=== PATIENT | male | born 1995 | race Caucasian/White ===

== ENCOUNTER 2018-02-26 12:59 | Emergency (ER) | payer OTHER ==
[~2018-02-26 12:59] MED LIST: ADDEXR15PT PO; ADV100/50 INH; ALB17R INH; AMOX-559 PO; AUG500 PO; CYCL10TA29 PO; DEXT5TAB10 PO; DIPH-741 PO; FEX60 PO; FEXO-1 PO; FLUO-202 PO; IBU800 PO; IBUP600T22 PO; IBUP800T37 PO; KET10 PO; LOR5 PO; LOR5/325 PO; MONT5TAB15 PO; ONDA4TAB97 PO; OSE75 PO; TOBOO OD; TRAM-420 PO
--- NOTE | 2018-02-26 13:02 | ER Report ---
History and Physical Time Seen By MD: 13:02 (FRANCISCA CHAMBERS MD) HPI/ROS CHIEF COMPLAINT: Facial laceration and contusion HISTORY OF PRESENT ILLNESS: Patient was at work today moving some finney when a portable ball that was being hung felt towards him and struck him in. He did not lose consciousness. It struck him in the forehead and also on the side of the nose. He has a cut and laceration to the left side of the nose lateral aspect. Patient denies any blurry vision or double vision. Eyes any nausea or vomiting. (FRANCISCA CHAMBERS MD) Allergies: Coded Allergies: No Known Drug Allergies (Verified , 02/26/18) Home Meds Active Scripts Amoxicillin/Pot Clav 875-125 Mg Tab (AUGMENTIN 875-125 TABLET) 1 Each Tablet, 1 TAB PO Q12H for 7 Days, #14 TAB 0 Refills Prov:FRANCISCA CHAMBRES MD 02/26/18 Oxycodone Hcl/Acetaminophen (PERCOCET 5-325 MG TABLET) 1 Each Tablet, 1 EACH PO Q4-6H for PAIN, #20 TAB 0 Refills Prov:FRANCISCA CHAMBERS MD 02/26/18 Discontinued Reported Medications Amphet Asp/Amphet/D-Amphet (ADDERALL 5 MG TABLET) 5 Mg Tablet, 5 MG PO DAILY 10/28/13 Amphet Asp/Amphet/D-Amphet (ADDERALL XR 15 MG CAPSULE) 15 Mg Cap.er.24h, 30 MG PO DAILY 10/28/13 Albuterol (Proventil Inhaler) 17 Gm Inh, 1-2 PUFF INH PRN, 0 Refills 1-2 PUFFS 07/17/10 Discontinued Scripts Amoxicillin/Pot Clav 875-125 Mg Tab (AUGMENTIN 875-125 TABLET) 1 Each Tablet, 1 TAB PO Q12H, #14 TAB Prov:PAO WILDER MD 05/31/16 Cyclobenzaprine Hcl (CYCLOBENZAPRINE HCL) 10 Mg Tablet, 10 MG PO TID for Muscle Relaxant, #18 TAB Prov:DAREN ROWLEY DO 08/18/15 Ibuprofen (IBUPROFEN) 800 Mg Tablet, 1 TAB PO Q8H for PAIN, #60 TAB Prov:PAT ROWLEYBIE 08/18/15 Past Medical/Surgical History Noncontributory (FRANCISCA CHAMBERS MD) Hx Smoking: Yes (5-6 CIGS/DAY) Smoking Status: Current: Every Day Smoker Exposure to Second Hand Smoke?: No (FRANCISCA CHAMBERS MD) Constitutional Vital Sign - Last 24 Hours 02/26/18 13:05 Temp 98.4 Pulse 95 Resp 16 B/P (MAP) 152/92 Pulse Ox 93 O2 Delivery Room Air (JOSHUA MCGRATH DO) Physical Exam General Appearance: Alert, no distress. Eyes: Pupils equal and round no pallor or injection. Extraocular muscles are intact and symmetrical ENT, Mouth: Ears: Tympanic membranes are normal. Nose: She has a vertical laceration through the alar of the left nostril and the lateral aspect of the nose. Mild amount of bleeding from left nostril no evidence of epidural hematoma Mouth: Mucous membranes are moist. Throat: No erythema or exudates there is no tonsillar hypertrophy and uvula is midline. Musculoskeletal: Neck is supple non tender, no adenopathy. Skin: Warm and dry, no rashes. (FRANCISCA CHAMBERS MD) Medical Decision Making ED Course/Re-evaluation ED Course Procedure: Laceration repair. Verbal consent was obtained from the patient. The 2 cm laceration on the location lateral aspect of the left nares was evaluated The wound was cleansed, draped and explored to its base with a gloved finger. The wound was repaired with 6 single interrupted 6-0 sutures. The wound repair was complex as it was a full thickness laceration and involved the ala of the left nares so careful attention was paid to primary repair so that the two ends of the ala lined up well. The procedure was performed by myself. Plan at this time will be to perform CT of the facial bones and CT of the head. We'll update patient's tetanus status. We'll place on outpatient pain medicine and antibiotics. Decision to Disposition Date: Feb 26, 2018 Decision to Disposition Time: 16:00 (FRANCISCA CHAMBERS MD) ED Course 02/26/2018 2:40:36 pm PT signed out pending CT reports. CT does not show any facial or skull fx. Pt feels comfortable going home. Decision to Disposition Date: Feb 26, 2018 Decision to Disposition Time: 14:41 (JOSHUA MCGRATH DO) Depart Departure Latest Vital Signs Vital Signs Date Time Temp Pulse Resp B/P (MAP) Pulse Ox O2 Delivery O2 Flow Rate FiO2 02/26/18 13:05 98.4 95 16 152/92 93 Room Air (JOSHUA MCGRATH DO) Impression: Primary Impression: Nasal laceration Condition: Improved Disposition: HOME OR SELF-CARE Referrals: GENNY TIENO MD (PCP) New Scripts Amoxicillin/Pot Clav 875-125 Mg Tab (AUGMENTIN 875-125 TABLET) 1 Each Tablet 1 TAB PO Q12H for 7 Days, #14 TAB 0 Refills Prov: FRANCISCA CHAMBERS MD 02/26/18 Oxycodone Hcl/Acetaminophen (PERCOCET 5-325 MG TABLET) 1 Each Tablet 1 EACH PO Q4-6H for PAIN, #20 TAB 0 Refills Prov: FRANCISCA CHAMBERS MD 02/26/18 Patient Instructions: Laceration (ED) Additional Instructions: Return to her primary doctor or the emergency department for suture removal in 5-7 days We are putting you on an antibiotic to help prevent an infection in your nasal cartilage. You should wash your face as usual. Place antibiotic ointment (such as neosporin or generic) on your sutures daily. Motrin/tylenol for any discomfort while at work. Percocet one every 4 hours for severe pain. You can not take this and drive or work. Problem Qualifiers Primary Impression: Nasal laceration Encounter type: initial encounter Qualified Codes: S01.21XA - Laceration without foreign body of nose, initial encounter FRANCISCA CHAMBERS MD Feb 26, 2018 13:02 JOSHUA MCGRATH DO Feb 26, 2018 14:43
[2018-02-26] MEDS ORDERED: TETRACAIN/EPI/LIDO GEL 3ML SYR TP ONE (13:25)
[2018-02-26] MEDS ORDERED: DIPHTH/TETANUS/ACEL. PERTUSSIS IM ONLY ONE (13:45)
[2018-02-26] MEDS ORDERED: AMOX-559 PO (14:09)
[2018-02-26] MEDS ORDERED: OXYC-865 PO (14:09)
[2018-02-26 14:30] VITALS: BP 123/47
--- NOTE | 2018-02-26 14:35 | RADIOLOGY IMAGING REPORT ---
FACILITY: [facility] PATIENT NAME: Gm Altamirano : 1995 MR: [id number] V: [id number] EXAM DATE: ORDERING PHYSICIAN: FRANCISCA CHAMBERS TECHNOLOGIST: [place] [facility] [place]: Gm Altamirano : 1995 Visit/Account:[id number] Date of Sevice: 02/26/2018 EXAMINATION: CT head without IV contrast CT facial bones without IV contrast HISTORY: Trauma. TECHNIQUE: Axial CT images of the head were obtained from the vertex to the skull base without IV c ontrast, with coronal and sagittal 2D reconstructed images. Thin axial CT images of the facial bones were obtained without IV contrast, from the superior orbit through the mandible, with 2D coronal and sagittal reconstructed images. One of the following dose optimization techniques was utilized in the performance of this exam: Autom ated exposure control; adjustment of the mA and/or kV according to the patient's size; or use of an i terative reconstruction technique. Specific details can be referenced in the facility's radiology C T exam operational policy. COMPARISON: CT head 03/02/2014. FINDINGS: The intracranial contents are unremarkable. No CT evidence of intracranial hemorrhage or mass effect . No midline shift or extra-axial fluid collections. Webb-white differentiation is maintained. The calvarium is intact. Dedicated imaging of the facial bones demonstrates no evidence of facial fracture. The bilateral nasa l bones and bony orbits are intact. The zygomatic arches and pterygoid plates are unremarkable. The m axilla and mandible are intact. Normal alignment at the temporomandibular joints. The paranasal sinuses and mastoid air cells are unopacified. The skull base is intact. IMPRESSION: 1. No CT evidence of acute intracranial pathology. No evidence intracranial hemorrhage or skull fract ure. 2. No evidence of facial fracture. Facial bones appear intact. Report Dictated By: Nicolas Hendrickson MD at 02/26/2018 2:20 PM Report E-Signed By: Nicolas Hendrickson MD at 02/26/2018 2:32 PM WSN:[id number]
--- NOTE | 2018-02-26 14:36 | RADIOLOGY IMAGING REPORT ---
FACILITY: [facility] PATIENT NAME: Gm Altamirano : 1995 MR: [id number] V: [id number] EXAM DATE: ORDERING PHYSICIAN: FRANCISCA CHAMBERS TECHNOLOGIST: Location: [facility] Patient: Gm Altamirano : 1995 Visit/Account:[id number] Date of Sevice: 02/26/2018 EXAMINATION: CT head without IV contrast CT facial bones without IV contrast HISTORY: Trauma. TECHNIQUE: Axial CT images of the head were obtained from the vertex to the skull base without IV c ontrast, with coronal and sagittal 2D reconstructed images. Thin axial CT images of the facial bones were obtained without IV contrast, from the superior orbit through the mandible, with 2D coronal and sagittal reconstructed images. One of the following dose optimization techniques was utilized in the performance of this exam: Autom ated exposure control; adjustment of the mA and/or kV according to the patient's size; or use of an i terative reconstruction technique. Specific details can be referenced in the facility's radiology C T exam operational policy. COMPARISON: CT head 03/02/2014. FINDINGS: The intracranial contents are unremarkable. No CT evidence of intracranial hemorrhage or mass effect . No midline shift or extra-axial fluid collections. Webb-white differentiation is maintained. The calvarium is intact. Dedicated imaging of the facial bones demonstrates no evidence of facial fracture. The bilateral nasa l bones and bony orbits are intact. The zygomatic arches and pterygoid plates are unremarkable. The m axilla and mandible are intact. Normal alignment at the temporomandibular joints. The paranasal sinuses and mastoid air cells are unopacified. The skull base is intact. IMPRESSION: 1. No CT evidence of acute intracranial pathology. No evidence intracranial hemorrhage or skull fract ure. 2. No evidence of facial fracture. Facial bones appear intact. Report Dictated By: Nicolas Hendrickson MD at 02/26/2018 2:20 PM Report E-Signed By: Nicolas Hendrickson MD at 02/26/2018 2:32 PM WSN:[id number]
== END 2018-02-26 14:59 | disposition home or self-care (01) ==
LOC: ER 13:09
DX: S01.21XA Laceration without foreign body of nose, initial encounter (principal); S00.33XA Contusion of nose, initial encounter; W20.8XXA Other cause of strike by thrown, projected or falling object, initial encounter
CPT/HCPCS: 70450; 70486; 90471; 90715; 99284

== ENCOUNTER 2018-11-25 20:39 | Emergency (ER) | payer SELFPAY ==
[2018-11-25] MEDS: PROPOFOL EMUL 10MG/ML 20 ML VL IV ONE ×2 (20:23→21:23)
[~2018-11-25 20:39] MED LIST changes: +OXYC-865 PO
--- NOTE | 2018-11-25 20:42 | ER Report ---
History and Physical Time Seen By MD: 20:37 HPI/ROS CHIEF COMPLAINT: shoulder dislocation, left HISTORY OF PRESENT ILLNESS: This is a 23 year old male. Sliding into home plate, left shoulder out with significant pain. Has had shoulder dislocations in the past, and very similar. Pain with movement. Normal sensation. No other injuries. Last oral intake was about 0300. Allergies: Coded Allergies: No Known Drug Allergies (Verified , 11/25/18) Home Meds Active Scripts Amoxicillin/Pot Clav 875-125 Mg Tab (AUGMENTIN 875-125 TABLET) 1 Each Tablet, 1 TAB PO Q12H for 7 Days, #14 TAB 0 Refills Prov:FRANCISCA CHAMBERS MD 02/26/18 Oxycodone Hcl/Acetaminophen (PERCOCET 5-325 MG TABLET) 1 Each Tablet, 1 EACH PO Q4-6H for PAIN, #20 TAB 0 Refills Prov:FRANCISCA CHAMBERS MD 02/26/18 Reviewed Nurses Notes: Yes Hx Smoking: Yes (5-6 CIGS/DAY) Smoking Status: Current: Every Day Smoker Exposure to Second Hand Smoke?: No Constitutional Vital Sign - Last 24 Hours 11/25/18 11/25/18 11/25/18 11/25/18 20:39 20:41 20:44 20:49 Temp 98.5 Pulse 80 81 62 63 Resp 20 12 10 B/P (MAP) 140/89 Pulse Ox 95 95 96 98 O2 Delivery Room Air 11/25/18 11/25/18 11/25/18 11/25/18 20:54 20:59 21:00 21:04 Pulse 81 63 76 Resp 10 16 12 B/P (MAP) 137/103 (114) Pulse Ox 98 97 99 11/25/18 11/25/18 11/25/18 11/25/18 21:09 21:14 21:18 21:19 Pulse 57 72 80 Resp 13 34 11 B/P (MAP) 151/91 (111) Pulse Ox 99 97 92 11/25/18 11/25/18 11/25/18 11/25/18 21:24 21:25 21:29 21:30 Pulse 74 ??? Resp 11 28 B/P (MAP) 142/111 (121) 155/109 (124) Pulse Ox 100 99 11/25/18 11/25/18 11/25/18 11/25/18 21:34 21:35 21:39 21:40 Pulse 87 95 Resp 8 21 B/P (MAP) 136/75 (95) 119/75 (90) Pulse Ox 85 84 11/25/18 11/25/18 11/25/18 11/25/18 21:44 21:45 21:49 21:54 Pulse 76 76 65 Resp 14 16 10 B/P (MAP) 129/77 (94) Pulse Ox 95 94 96 Physical Exam General: Alert, acute distress due to pain. Skin: No breakdown. Musculoskeletal: Pain with deformity consistent with dislocation. Guarding arm from any movement. Cardiovascular: Normal pulses and capillary refill. Neuro: Normal sensation. Medical Decision Making EKG/Imaging Imaging SHOULDER MIN 2 VIEWS LEFT Indication: Dislocation. Comparison: Unavailable Findings: 2 views of the left shoulder. Anterior dislocation of the humeral head. No appreciable fracture. AC joint is intact. No bony lesions. Soft tissues are unremarkable. IMPRESSION: 1. Anterior dislocation of the humeral head. No appreciable fracture. Report Dictated By: John Castillo at 11/25/2018 9:46 PM EXAMINATION: Left shoulder radiographs 2 views HISTORY: Status post shoulder reduction. COMPARISON: Left shoulder radiographs from the same day. FINDINGS: Two views of the left shoulder are obtained. Bones: No evidence of acute fracture. Joint spaces: Negative. There has been successful reduction of the previous left glenohumeral joint dislocation. Hardware: None. Alignment: Normal. Soft tissues/visualized lungs: Negative. IMPRESSION: Successful reduction of the previous left glenohumeral joint dislocation. No evidence of acute fracture. Report Dictated By: Artemio Saavedra MD at 11/25/2018 10:02 PM ED Course/Re-evaluation Clinical Indication for ER IV: Hydration, IV Access ED Course Fentanyl given for pain initially. Successful relocation with a propofol sedation. Procedure: Procedural sedation. A pre-sedation evaluation was completed on the patient. Patient is an appropriate candidate for procedural sedation. The risks of the sedation were discussed with the patient. A time out was completed. The patient was reevaluated immediately prior to initiation of sedation. The patient was sedated with propofol. The patient was monitored with continuous pulse oximetry and monitor technician. There were no complications and no significant hypoxemia. I remained at the bedside for the sedation. The total time I spent in the procedural sedation was 15 minutes. Post sedation evaluation: Patient was alert and cooperative, hemodynamically stable with appropriate respiratory status, temperature and pain control without ongoing nausea and vomiting. Procedure: Shoulder dislocation reduction: The shoulder was reduced in the usual fashion without complications. Post reduction the patient's neurovascular exam is normal. Post reduction x-ray demonstrates reduction of the joint to the anatomic position. The procedure was performed by myself. Decision to Disposition Date: Nov 25, 2018 Decision to Disposition Time: 22:02 Depart Departure Latest Vital Signs Vital Signs Date Time Temp Pulse Resp B/P (MAP) Pulse Ox O2 Delivery O2 Flow Rate FiO2 11/25/18 21:54 65 10 96 11/25/18 21:45 129/77 (94) 11/25/18 20:41 98.5 Room Air Impression: Primary Impression: Shoulder dislocation Condition: Improved Disposition: HOME OR SELF-CARE Referrals: GENNY TINEO MD (PCP) DILEEP HANSEN MD Patient Instructions: Shoulder Dislocation (ED), Shoulder Dislocation Exercises (GEN) Additional Instructions: Ibuprofen 200mg over the counter tablets, take 4 tablets three times a day with food. Apply ice 20 minutes every 1-2 hours while awake. Use the sling to help with pain. Follow-up with orthopedic surgery. [facility] for [facility]. Problem Qualifiers Primary Impression: Shoulder dislocation Encounter type: initial encounter Laterality: left Qualified Codes: S43.005A - Unspecified dislocation of left shoulder joint, initial encounter STACI FLYNN MD Nov 25, 2018 20:42
[2018-11-25] MEDS ORDERED: NS(*) 0.9% 1000 ML BAG 1,000 ML IV ONE (20:45)
[2018-11-25] MEDS ORDERED: fentaNYL CITR 100 MCG/2 ML AMP IVP ONE (20:45)
--- NOTE | 2018-11-25 21:55 | RADIOLOGY IMAGING REPORT ---
FACILITY: [facility] PATIENT NAME: Gm Altamirano : 1995 MR: [id number] V: [id number] EXAM DATE: ORDERING PHYSICIAN: STACI FLYNN TECHNOLOGIST: Location: [facility] Patient: Gm Altamirano : 1995 Visit/Account:[id number] Date of Sevice: 11/25/2018 SHOULDER MIN 2 VIEWS LEFT Indication: Dislocation. Comparison: Unavailable Findings: 2 views of the left shoulder. Anterior dislocation of the humeral head. No appreciable fracture. AC j oint is intact. No bony lesions. Soft tissues are unremarkable. IMPRESSION: 1. Anterior dislocation of the humeral head. No appreciable fracture. Report Dictated By: John Castillo at 11/25/2018 9:46 PM Report E-Signed By: John Castillo at 11/25/2018 9:48 PM WSN:[id number]
[2018-11-25 22:00] VITALS: BP 128/65
--- NOTE | 2018-11-25 22:12 | RADIOLOGY IMAGING REPORT ---
FACILITY: [facility] PATIENT NAME: Gm Altamirano : 1995 MR: [id number] V: [id number] EXAM DATE: ORDERING PHYSICIAN: STACI FLYNN TECHNOLOGIST: Location: [facility] Patient: Gm Altamirano : 1995 Visit/Account:[id number] Date of Sevice: 11/25/2018 EXAMINATION: Left shoulder radiographs 2 views HISTORY: Status post shoulder reduction. COMPARISON: Left shoulder radiographs from the same day. FINDINGS: Two views of the left shoulder are obtained. Bones: No evidence of acute fracture. Joint spaces: Negative. There has been successful reduction of the previous left glenohumeral joint dislocation. Hardware: None. Alignment: Normal. Soft tissues/visualized lungs: Negative. IMPRESSION: Successful reduction of the previous left glenohumeral joint dislocation. No evidence of acute fract ure. Report Dictated By: Artemio Saavedra MD at 11/25/2018 10:02 PM Report E-Signed By: Artemio Saavedra MD at 11/25/2018 10:04 PM WSN:[id number]
== END 2018-11-25 22:23 | disposition home or self-care (01) ==
LOC: ER 20:58
DX: S43.005A Unspecified dislocation of left shoulder joint, initial encounter (principal)
CPT/HCPCS: 23650; 73030; 96361; 96374; 99152; 99285; A4565; J2704; J3010; J7030